=== PATIENT | female | born 1955 | race Two or more races ===

== ENCOUNTER 2017-10-30 10:03 | Day surgery (SDC) | payer OTHER ==
[2017-10-27 17:00] VITALS: BMI 25.0
[2017-10-30] MEDS ORDERED: PROPOFOL 20 ML ONE ×3 (10:26)
[2017-10-30 12:40] VITALS: TEMP 98.8
[2017-10-30 13:05] VITALS: BP 100/79; PULSE 79
== END 2017-10-30 13:10 | disposition home or self-care (01) ==
LOC: FASU-ENDO 10:03
PROVIDERS: ATTEND Internal Medicine Gastroenterology
PROC: 0DJD8ZZ Inspection of Lower Intestinal Tract, Via Natural or Artificial Opening Endoscopic (ICD-10-PCS; principal; 2017-10-30 11:00)
DX: Z12.11 Encounter for screening for malignant neoplasm of colon (principal); Z86.010 Personal history of colon polyps